=== PATIENT | female | born 1970 | race Caucasian/White ===

== ENCOUNTER 2020-06-09 12:01 | Emergency (ER) | payer OTHER, SELFPAY ==
[2020-06-09 12:19] VITALS: BP 110/76; PULSE 65; RESP 20; TEMP 36.3; O2SAT 100
[2020-06-09] MEDS: TETANUS,DIPHTHERIA,AC PERTUSSIS ADULT (0.5 ML) BOOSTRIX IM (13:02)
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
== END 2020-06-09 13:45 | disposition home or self-care (01) ==
PROVIDERS: Emergency Provider Emergency Medicine; PCP Internal Medicine
DX: S81.811A Laceration without foreign body, right lower leg, initial encounter (principal); Z23 Encounter for immunization; W27.2XXA Contact with scissors, initial encounter
CPT/HCPCS: 12001; 90471; 90715; 99282

== ENCOUNTER 2022-04-18 16:56 | Emergency (ER) | payer BC, OTHER, SELFPAY ==
--- NOTE | 2022-04-18 17:06 | ED.SKABFB ---
HPI - Skin/Abscess/Foreign Bdy General Chief complaint: Skin/Abscess/Foreign Body Stated complaint: Rash On both Hands Time Seen by Provider: 04/18/22 17:05 Source: patient Mode of arrival: ambulatory Limitations: no limitations History of Present Illness HPI narrative: Ms. Massey is a 51-year-old female patient presenting to the clinic today with complaints of rash on bilateral hands. She reports this has been ongoing for approximately 1 month. 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 She thinks that she may be having allergic reaction to jim tea that she has started to drink over the last month. She has seen her PCP on been on a couple rounds of antibiotics. She reports that her hands are inflamed and itching very badly. She is also using triamcinolone cream 0. 1% that has not been helpful Related Data Home Medications Medication Instructions Recorded Confirmed cetirizine 10 mg tablet (Zyrtec) 10 mg PO DAILY 10/28/21 04/18/22 rizatriptan 5 mg tablet 5 mg PO ONCE 10/28/21 04/18/22 topiramate 200 mg tablet (Topamax) 200 mg PO BID 10/28/21 04/18/22 Allergies Allergy/AdvReac Type Severity Reaction Status Date / Time shellfish derived Allergy Unknown Hives Verified 04/18/22 16:58 tree nut Allergy Unknown Hives Verified 04/18/22 16:58 iodine Allergy Unknown Verified 04/18/22 16:58 latex Allergy Rash Verified 04/18/22 16:58 Review of Systems Review of Systems: Pertinent positives per HPI. Patient denies any fever, chills, headache, visual changes, dizziness, cough, runny nose, sore throat, shortness of breath, chest pain, palpitations, nausea, vomiting, diarrhea, constipation, abdominal pain, or any urinary issues. [facility] Surgical History Surgical History H/O right breast biopsy (04/18/17) H/O right breast biopsy (03/22/18) H/O right breast biopsy (06/09/21) H/O right breast biopsy (08/11/21) radial scar abnormal cells seeing oncologist H/O: hysterectomy supracx hysterectomy History of orthopedic surgery right shoulder History of orthopedic surgery left knee Hx of cholecystectomy Family History Family History Other Breast cancer paternal aunt Grandparent H/O ovarian cancer maternal grandmother Mother Hypertension Father Hypertension Social History Social History Smoking status: Former smoker Smoking end date: 05/01/21 Alcohol intake: current Alcohol use details: ocassional Substance use: never Substance use type: does not use Additional living arrangements comments: Additional occupation/education comments: [employer] Gender identity (if verbalized by the patient): Female Sexual Orientation (if Verbalized by the Patient): Straight or Heterosexual Comments At the time of my signature, I reviewed and agree with the nursing past medical, surgical, social, and family history. There is no relevant family history pertinent to the patient complaint. Exam Narrative: General: Well-developed, well nourished, in no apparent distress Head: Normocephalic, atraumatic. Cardio: Regular rate and rhythm, s1 and s2 normal, no murmur appreciated. Resp: Clear to auscultation bilaterally, no rhonchi, rales, wheezing or rubs. Integumentary: [place], warm, and dry, bilateral hand swelling, redness, and itching with patches of dry skin and peeling around her fingers. Course Course Emergency Course: Portions of this record may have been created with voice recognition software. Level of Care: Express Care Visit Vital Signs Vital signs: Vital Signs Temperature 35.8 C L 04/18/22 17:12 Pulse Rate 85 04/18/22 17:12 Respiratory Rate 18 04/18/22 17:12 Blood Pressure 115/77 04/18/22 17:12 Pulse Oximetry 100 04/18/22 17:12 Oxygen Delivery Room Air 04/18/22 17:12 Temperature 35.8 C L
[2022-04-18 17:12] VITALS: BP 115/77; PULSE 85; RESP 18; TEMP 35.8; O2SAT 100
== END 2022-04-18 17:16 | disposition home or self-care (01) ==
PROVIDERS: Emergency Provider Nurse Practitioner Family; PCP Internal Medicine
DX: L20.9 Atopic dermatitis, unspecified (principal); Z87.891 Personal history of nicotine dependence
CPT/HCPCS: 99213; G0463

== ENCOUNTER 2022-08-27 08:00 | Outpatient (RCR) | payer OTHER, SELFPAY ==
--- NOTE | 2022-08-12 15:53 | PTOPEVAL1 ---
Assessment and note entered by Luda Galarza, PT Evaluation Information Assessment Status Evaluation Diagnosis s/p R knee arthroscopy for medial meniscal tear Onset 08-10-22 Subjective Information is walking around the house without the crutches or with 1 crutch; at home have been doing ankle pumps, SLR, heel slides; have been using ice and elevation; Reported Pain Level Pain Score Self Report Additional Pain Score Comments pain today: 4/10; burning pain with flexion at end range; increase pain with getting out of bed and decreased with ice; have oxycodone and tylenol/ibuprofen; Assessment PT Clinical Summary Aylin is s/p R knee arthroscopy due to medial meniscal tear. She has had L knee arthroscopy in the past. 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 With the evaluation, she has decreased strength and ROM of R knee post op; decreased walking pattern and decreased activity level. Skilled PT services are indicated to increase R knee ROM and strength, with progression of HEP and activity, modalities PRN for pain and swelling and education for home exercises. Plan of Care Interventions Electrical Stimulation,Gait Training,Hot Pack/Cold Pack,Manual Therapy,Neuro Re-education,Patient/ Caregiver Education,Therapeutic Activities, Therapeutic Exercise PT Services Indicated Yes Treatment Frequency and 1-2x/wk for 3 weeks, depending upon her work Duration schedule These treatments will address the objective and functional deficits as defined above. The patient will be advanced safely and appropriately in order for the patient to progress towards his/her prior level of function. Additional exercises will be introduced and as well as a comprehensive home exercise program upon discharge, if needed, ?to ensure carryover of functional gains achieved in the clinic. This treatment plan has been reviewed and agreement upon by the patient.
--- NOTE | 2022-08-30 10:58 | PCPTNOTE ---
PHYSICAL THERAPY DISCHARGE 08-30-22 Attending Provider: AMMON CARTAGENA MD Patient:Aylin Massey Date of :1970 Mrs. Massey has received 3 PT sessions, from August 12 to , for the diagnosis of s/p R knee arthroscopy. At the last session: active ROM of knee was 0-140', did not have pain, 2 minute walking test distance was 500', was indep with Home Exercises and single leg standing tolerance of 30 seconds with good stability. The goals were achieved; Therefore, she will be discharged at this time. Thank you for referring Aylin to [facility].
== END 2022-08-31 08:47 | disposition home or self-care (01) ==
LOC: ANHPT 08:00
PROVIDERS: PCP Internal Medicine
DX: S83.241D Other tear of medial meniscus, current injury, right knee, subsequent encounter (principal); M25.561 Pain in right knee
CPT/HCPCS: 97110; 97161; 97530

== ENCOUNTER 2022-10-03 18:07 | Emergency (ER) | payer OTHER, SELFPAY ==
--- NOTE | ~2022-10-03 | XR_ITS ---
EXAMINATION: XR knee RT 3V DATE: 10/03/2022 18:49 INDICATION: Right knee pain and swelling TECHNIQUE: Three views of the right knee were obtained. COMPARISON: None. FINDINGS: Alignment is normal. No fracture or osteochondral lesion. Joint spaces are normal with no e rosions. No joint effusion/synovitis. Soft tissues are unremarkable. IMPRESSION: 1. No acute osseous abnormality. Reviewed, dictated and finalized at location F. [facility] [employer]
[2022-10-03 18:13] VITALS: BP 112/61; PULSE 87; RESP 18; TEMP 36.9; O2SAT 100
[2022-10-03 22:38] VITALS: BP 118/84; PULSE 67; RESP 16; O2SAT 100
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
[2022-10-03 23:20] LABS: Basophils Absolute Auto 0.1 K/mm3 (0.0-0.1); Basophils Percent Auto 0.9 % (0.2-1.2); Eosinophils Absolute Auto 0.2 K/mm3 (0-0.3); Eosinophils Percent Auto 2.8 % (0-4.4); Hematocrit 36.7 % (37.0-47.0); Hemoglobin 11.4 g/dL (12.0-15.0); Immature Granulocyte Absolute 0.03 K/mm3 (0.00-0.031); Immature Granulocyte Percent A 0.4 % (0-0.5); Lymphocytes Absolute Auto 3.62 K/mm3 (0.9-3.2); Lymphocytes Percent Auto 46.1 % (18.3-44.2); Mean Corpuscular HGB Conc 31.1 g/dl (32-36); Mean Corpuscular Hemoglobin 29.4 pg (26-34); Mean Corpuscular Volume 94.6 fl (80-100); Mean Platelet Volume 9.8 fl (7.4-10.4); Monocytes Absolute Auto 0.5 K/mm3 (0.1-0.6); Monocytes Percent Auto 6.1 % (2.6-8.5); Neutrophils Absolute Auto 3.4 K/mm3 (1.3-6.7); Neutrophils Percent Auto 43.7 % (45.5-73.1); Platelet Count Result 232 k/mm3 (150-375); Red Blood Count 3.88 M/mm3 (4.2-5.4); Red Cell Distribution Width 12.9 % (11.5-14.5); White Blood Count 7.9 K/mm3 (4.5-10.0)
[2022-10-03 23:32] LABS: Alanine Aminotransferase 20 U/L (6-35); Albumin Level 3.9 g/dL (3.5-5.1); Alkaline Phosphatase 62 U/L (38-126); Anion Gap 4 mmol/L (8-16); Aspartate Amino Transferase 22 U/L (14-36); Bilirubin,Total 0.5 mg/dL (0.2-1.3); Blood Urea Nitrogen 15 mg/dL (7-17); Calcium 8.6 mg/dL (8.4-10.2); Carbon Dioxide 25 mmol/L (22-30); Chloride 109 mmol/L (98-107); Estimated Glomerular Filt Rate > 60; Glucose 96 mg/dL (65-110); Potassium 4.2 mmol/L (3.4-5.0); Prothrombin Time 12.7 Seconds (11.1-14.7); Sodium 138 mmol/L (137-145)
[2022-10-03 23:33] LABS: Partial Thromboplastin Time 25.5 SECONDS (22.3-36.8)
[2022-10-04 00:11] LABS: D Dimer 0.33 ug/mL (<0.48)
[2022-10-04 00:40] VITALS: BP 108/63; PULSE 81; RESP 18; O2SAT 100
== END 2022-10-04 00:40 | disposition home or self-care (01) ==
PROVIDERS: Emergency Provider Emergency Medicine; PCP Internal Medicine
DX: M79.661 Pain in right lower leg (principal); Z87.891 Personal history of nicotine dependence
CPT/HCPCS: 36415; 73562; 80053; 85025; 85380; 85610; 85730; 99283

== ENCOUNTER 2022-10-04 07:49 | Outpatient (CLI) | payer OTHER, SELFPAY ==
--- NOTE | ~2022-10-04 | US_ITS ---
EXAMINATION: US venous doppler LE RT DATE: 10/04/2022 08:19 INDICATION: Right lower limb pain. TECHNIQUE: Grayscale ultrasound images without and with compression and Doppler ultrasound images of the right lower extremity veins were obtained. COMPARISON: None. FINDINGS: The visualized portions of right common femoral vein, profunda (deep) femoral vein, femoral vein, pop liteal vein, peroneal veins, posterior tibial veins, and greater saphenous vein outflow are patent. IMPRESSION: 1. No deep venous thrombosis. Reviewed, dictated and finalized at location D. [facility]
== END 2022-10-04 07:50 | disposition home or self-care (01) ==
PROVIDERS: PCP Internal Medicine; Visit Provider Internal Medicine
DX: M79.661 Pain in right lower leg (principal)
CPT/HCPCS: 93971

== ENCOUNTER 2023-04-10 15:00 | Emergency (ER) | payer OTHER, SELFPAY ==
[2023-04-10 15:49] VITALS: BP 105/65; PULSE 79; RESP 16; TEMP 36.2; O2SAT 100
--- NOTE | 2023-04-10 16:45 | ED.FEMALEGU ---
HPI - Female Genitourinary General Chief complaint: Urogenital-Female Stated complaint: Female Urogenital Time Seen by Provider: 04/10/23 16:41 Source: patient and RN notes reviewed Mode of arrival: ambulatory Limitations: no limitations History of Present Illness HPI Narrative: Patient presents today with a one-week history of lower abdominal pressure and dysuria. She had some blood on her toilet paper when she wiped this morning as well. Patient was started on a course of Bactrim for presumed UTI based on a telephone visit with her PCP last week. States symptoms improved until yesterday, then worsened again. She was taking azo earlier in the week for a couple of days, but then stopped this. Patient has had a partial hysterectomy. Patient is also complaining of some external genital irritation and believe she may have a yeast infection due to the Bactrim. Related Data Home Medications Medication Instructions Recorded Confirmed cetirizine 10 mg tablet (Zyrtec) 10 mg PO DAILY 10/28/21 04/10/23 rizatriptan 5 mg tablet 5 mg PO ONCE 10/28/21 04/10/23 topiramate 200 mg tablet (Topamax) 200 mg PO BID 10/28/21 04/10/23 sulfamethoxazole 800 1 tablet PO BID 04/10/23 04/10/23 mg-trimethoprim 160 mg tablet Allergies Allergy/AdvReac Type Severity Reaction Status Date / Time egg Allergy Intermediate Rash Verified 04/10/23 16:24 latex Allergy Intermediate Rash Verified 04/10/23 16:24 Review of Systems Review of Systems: CONSTITUTIONAL: Denies body aches, fever, chills, or sweats. EYES: Denies visual changes, redness, or discharge. ENT: Denies rhinorrhea, congestion, sore throat, or otalgia. CARDIOVASCULAR: Denies chest pain, palpitations, or edema. RESPIRATORY: Denies cough or dyspnea. GASTROINTESTINAL: Denies abdominal pain, nausea, vomiting, or diarrhea. GENITOURINARY: + dysuria, hematuria, lower abdominal pressure SKIN: Denies rash, itching, or wounds. MUSCULOSKELETAL: Denies back pain, joint pain, or myalgia. NEUROLOGIC: Denies headache, numbness, tingling, or weakness. PSYCH: Denies depression or anxiety. [facility] Surgical History Surgical History H/O breast biopsy 2022 @ [facility] H/O right breast biopsy (04/18/17) H/O right breast biopsy (03/22/18) H/O right breast biopsy (06/09/21) H/O right breast biopsy (08/11/21) radial scar abnormal cells seeing oncologist H/O: hysterectomy supracx hysterectomy History of orthopedic surgery right shoulder History of orthopedic surgery left knee Hx of cholecystectomy Family History Family History Other Breast cancer paternal aunt Grandparent H/O ovarian cancer maternal grandmother Mother Hypertension Father Hypertension Social History Social History Smoking status: Former smoker Smoking end date: 05/01/21 Alcohol intake: current Alcohol use details: ocassional Substance use: never Substance use type: does not use Lack of Transportation: No Lack of Food: Never True Current Housing: I Have Housing Concerned About Future Housing: No Difficulty Paying Gas/Electric Bills: No Difficulty Paying for Meds: No Currently Unemployed: No Education: High School Diploma/GED Difficulty w/ Childcare or Family Care: No Living arrangements: other Additional living arrangements comments: Occupation/Education: occupation 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 Please see nursing chart for further information. There is no relevant family hist
== END 2023-04-10 16:55 | disposition home or self-care (01) ==
PROVIDERS: Emergency Provider Nurse Practitioner; PCP Internal Medicine
DX: N39.0 Urinary tract infection, site not specified (principal); Z87.891 Personal history of nicotine dependence
CPT/HCPCS: 81003; 87086; 99213; G0463

== ENCOUNTER 2023-04-13 16:06 | Emergency (ER) | payer OTHER, SELFPAY ==
--- NOTE | ~2023-04-13 | CT_ITS ---
EXAMINATION: CT abdomen pelvis w con INDICATION: Suprapubic and right lower quadrant pain TECHNIQUE: Computed tomographic images of the abdomen and pelvis were obtained after the administrati on of 100 cc of Omnipaque 350 intravenous contrast. The dose-length product (DLP) was 404.92 mGy-cm. Automated exposure control and iterative reconstruction technique were employed. COMPARISON: None available FINDINGS: The lung bases are clear. The heart size is normal. The gallbladder is surgically absent. T here is mild enlargement of the common bile duct and central intrahepatic ducts which is likely due t o post cholecystectomy state. There is a 7 mm cyst of the liver. The spleen, pancreas, and adrenal gl ands are normal. There is a 7 mm cyst of the left kidney. The right kidney is unremarkable. No pathol ogically enlarged abdominal or pelvic lymph nodes are identified. No free intraperitoneal gas or evid ence of bowel obstruction. A moderate volume of colonic stool is present. The appendix is not definit payton identified however no right lower quadrant inflammatory change is seen. There is mild lumbar spon dylosis. IMPRESSION: 1. Constipation. Reviewed, dictated and finalized at location F. IMPRESSION: 1. Constipation.
[2023-04-13 16:08] VITALS: BP 119/62; PULSE 66; RESP 16; TEMP 36.7; O2SAT 100
[2023-04-13 16:23] LABS: Basophils Absolute Auto 0.1 K/mm3 (0.0-0.1); Basophils Percent Auto 0.9 % (0.2-1.2); Eosinophils Absolute Auto 0.1 K/mm3 (0-0.3); Eosinophils Percent Auto 1.2 % (0-4.4); Hematocrit 41.8 % (37.0-47.0); Hemoglobin 13.1 g/dL (12.0-15.0); Immature Granulocyte Absolute 0.01 K/mm3 (0.00-0.031); Immature Granulocyte Percent A 0.1 % (0-0.5); Lymphocytes Absolute Auto 2.99 K/mm3 (0.9-3.2); Mean Corpuscular HGB Conc 31.3 g/dl (32-36); Mean Corpuscular Volume 92.5 fl (80-100); Mean Platelet Volume 9.4 fl (7.4-10.4); Monocytes Absolute Auto 0.3 K/mm3 (0.1-0.6); Monocytes Percent Auto 4.4 % (2.6-8.5); Neutrophils Percent Auto 53.4 % (45.5-73.1); Platelet Count Result 285 k/mm3 (150-375); Red Blood Count 4.52 M/mm3 (4.2-5.4); Red Cell Distribution Width 12.6 % (11.5-14.5); White Blood Count 7.5 K/mm3 (4.5-10.0)
[2023-04-13 16:34] LABS: Alanine Aminotransferase 26 U/L (6-35); Albumin Level 4.8 g/dL (3.5-5.1); Alkaline Phosphatase 71 U/L (38-126); Anion Gap 9 mmol/L (8-16); Aspartate Amino Transferase 30 U/L (14-36); Bilirubin,Total 0.7 mg/dL (0.2-1.3); Blood Urea Nitrogen 15 mg/dL (7-17); Carbon Dioxide 22 mmol/L (22-30); Chloride 107 mmol/L (98-107); Estimated CRCL calculation 75 ml/min; Estimated Glomerular Filt Rate > 60; Glucose 96 mg/dL (65-110); Lipase 126 U/L (23-300); Sodium 138 mmol/L (137-145)
[2023-04-13 16:51] LABS: Appearance Urine Clear (Clear); Bilirubin Urine Negative (Negative); Blood Urine Negative (Negative); Color Urine Yellow (Yellow); Glucose Urine UA Negative (Negative); Ketones Urine Negative (Negative); Leukocyte Esterase Ur Negative LEU/UL (Negative); Nitrate Urine Negative (Negative); Protein Urine Negative (Negative); Specific Grav Ur 1.008 (1.001-1.035); Urobilinogen Urine 0.2 mg/dL (<2.0)
[2023-04-13 16:54] LABS: Add Urine Microscopic? NO
--- NOTE | 2023-04-13 17:44 | ED.ABDPAIN ---
HPI - Abdominal Pain General Chief Complaint: Abdominal Pain Stated Complaint: abdominal pain Time Seen by Provider: 04/13/23 17:01 History of Present Illness HPI narrative: 52-year-old female with history of migraines reports for evaluation for abdominal pain x1.5 weeks. Patient states a week and half ago, she developed dysuria, suprapubic abdominal pain and pressure. States she called her PCP who prescribed her Bactrim for a UTI. States she took the Bactrim for 6 days and I missed any doses but continue to have symptoms.she then developed hematuria and therefore went to urgent care 3 days ago who prescribed her Keflex for UTI. She has been taking Keflex for the past 3 days and has not missed any doses, however her symptoms still persist. She does state that her hematuria resolved yesterday, but she is still having abdominal pain and pressure. States the pain is in her periumbilical region and suprapubic region as well as RLQ and LLQ. She saw her primary care provider today 1300 who advised her to come to the ED for a CT scan. States her urinalysis looked clean per PCP today. She reports having intermittent episodes of diaphoresis, denies known fever. She denies nausea, vomiting, diarrhea, melena or hematochezia, vaginal bleeding or concern for STDs, chest pain or shortness of breath. She states she was having L flank pain 1 weeks ago but that has since resolved. Denies hx of kidney stones. Her last bowel movement was today and normal. Prior abdominal surgeries include a partial hysterectomy, 2 C-sections and a cholecystectomy. Related Data Home Medications Medication Instructions Recorded Confirmed cetirizine 10 mg tablet (Zyrtec) 10 mg PO DAILY 10/28/21 04/10/23 rizatriptan 5 mg tablet 5 mg PO ONCE 10/28/21 04/10/23 topiramate 200 mg tablet (Topamax) 200 mg PO BID 10/28/21 04/10/23 sulfamethoxazole 800 1 tablet PO BID 04/10/23 04/10/23 mg-trimethoprim 160 mg tablet Allergies Allergy/AdvReac Type Severity Reaction Status Date / Time egg Allergy Intermediate Rash Verified 04/10/23 16:24 latex Allergy Intermediate Rash Verified 04/10/23 16:24 Review of Systems Review of Systems: CONSTITUTIONAL: Denies fever, chills EYES: Denies visual changes, redness, or discharge. ENT: Denies rhinorrhea, congestion, sore throat, or otalgia. CARDIOVASCULAR: Denies chest pain, palpitations, or edema. RESPIRATORY: Denies cough or dyspnea. GASTROINTESTINAL: See HPI GENITOURINARY: See HPI SKIN: Denies rash or itching. MUSCULOSKELETAL: Denies back pain, joint pain, or myalgia. NEUROLOGIC: Denies headache, numbness, dizziness, or weakness. PSYCHIATRIC: Denies anxiety or depression. [facility] Surgical History Surgical History H/O breast biopsy 2022 @ [facility] H/O right breast biopsy (04/18/17) H/O right breast biopsy (03/22/18) H/O right breast biopsy (06/09/21) H/O right breast biopsy (08/11/21) radial scar abnormal cells seeing oncologist H/O: hysterectomy supracx hysterectomy History of orthopedic surgery right shoulder History of orthopedic surgery left knee Hx of cholecystectomy Family History Family History Other Breast cancer paternal aunt Grandparent H/O ovarian cancer maternal grandmother Mother Hypertension Father Hypertension Social History Social History Smoking status: Former smoker Smoking end date: 05/01/21 Alcohol intake: current Alcohol use details: ocassional Substance use: never Substance use type: does not use Lack of Transportation: No Lack of Food: Never True Current Housing: I Have Housing Concerned About Future Housing: No Difficulty Paying Gas/Electric Bills: No Difficulty Paying for Meds: No Currently Unemployed: No Education: High School Diploma/GED Difficulty w/ Childcare o
--- NOTE | 2023-04-13 18:05 | PC.NURSE ---
multiple attempts at IV access without success. Another RN in room to attempt IV access.
[2023-04-13] MEDS: MORPHINE SULFATE (*CRX) 4 MG/ML INJ IV PUSH (18:11)
[2023-04-13] MEDS: SODIUM CHLORIDE 0.9% IV 1,000 ML 999 ML IV CONT (18:11)
[2023-04-13] MEDS: ONDANSETRON INJ 4 MG/2 ML VIAL IV PUSH ×2 (18:11→20:02)
[2023-04-13] MEDS: HYDROmorphone HCL INJ (*CRX) 1 MG/ML SYR IV PUSH (18:55)
[2023-04-13 19:29] VITALS: PULSE 61; RESP 15; O2SAT 100
[2023-04-13] MEDS: PEG (High)/E-LYTE SOLN 4,000 ML BTL 4000 ML PO (20:34)
[2023-04-13 22:56] VITALS: BP 126/66; PULSE 68; RESP 20; O2SAT 100
== END 2023-04-13 22:57 | disposition home or self-care (01) ==
PROVIDERS: Emergency Medicine; Emergency Provider Physician Assistant; PCP Internal Medicine
DX: K59.00 Constipation, unspecified (principal); Z90.710 Acquired absence of both cervix and uterus; Z90.49 Acquired absence of other specified parts of digestive tract; Z87.891 Personal history of nicotine dependence
CPT/HCPCS: 36415; 74177; 80053; 81003; 81025; 83690; 85025; 96361; 96374; 96375; 96376; 99284; A9270; J1170; J2270; J2405; J7030; Q9967

== ENCOUNTER 2023-10-25 08:15 | Outpatient (RCR) | payer OTHER, SELFPAY ==
[2023-10-19 09:25] VITALS: BP_SYST 140
--- NOTE | 2023-10-19 10:17 | OPREHPOC ---
Outpatient Therapy Plan of Care This is a Multidisciplinary Plan of Care that may contain components documented by all disciplines (PT, OT, and ST.) PT Problem 1 PT Problem #1 Knowledge Deficit PT Goal 1 Goal * indep with HEP PT Problem 2 PT Problem #2 Pain PT Goal 1 Goal 1* decrease pain rating at worst to 4/10 2* pt report with sleeping, awaken due to pain 1x/ night 3* self assessment functional score with Quick DASH rating of 30% limitation in activity level PT Problem 3 PT Problem #3 Impaired Strength PT Goal 1 Goal increase strength of R shoulder/dominant arm, to improve ability to do home, self care and work tasks: standing x 5 reps: 1* flexion to 140; 2* abduction to 130' 3* IR- reach behind back, fingers to upper scapula
--- NOTE | 2023-10-19 10:18 | PTOPEVAL1 ---
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 Reported Pain Level Pain Score Self Report Additional Pain Score Comments pain range in the past week 2-03/10; increase pain: abduction and extension shoulder motion; sleeping- awaken 3-4 x/night- end up going to the couch decrease pain: taking anti inflammatory prescription; ice; Assessment PT Clinical Summary Aylin has the diagnosis of R shoulder capsulitis. Her history includes L shoulder pain with arthroscopy. 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 Self assessment Quick DASH rating of 48% limitation. She is able to do all of her work and home tasks, with increased pain. Sleep is disrupted due to pain. She has been doing some of the previous exercises from previous PT for her L shoulder. With the evaluation: she has decreased active ROM of shoulder flexion, abduction and IR motions; most pain with combined motion of shoulder abduction and extension; spasms over mid deltoid and biceps with tenderness. Skilled PT services are indicated for modalities to decrease pain and spasms, therapeutic exercises to increase R shoulder ROM and strength with education for HEP, posture correction, body mechanics with work positions. Plan of Care Interventions Elect
--- NOTE | 2023-11-04 15:42 | PTOPDC ---
Assessment and note entered by Luda Galarza, PT Discharge Information Assessment Status Discharge - Pt Not Present Diagnosis R shoulder capsulitis Onset Jul 2023 Assessment PT Clinical Summary Aylin has received 3 PT appointments from October 18 to . On November 02, she called and canceled all of her therapy appointments. The goals were not addressed. Discharge PT per pt request. Plan of Care PT Services Indicated No
== END 2023-11-07 09:41 | disposition home or self-care (01) ==
LOC: ANHPT 08:15
PROVIDERS: PCP Internal Medicine
DX: M25.511 Pain in right shoulder (principal)
CPT/HCPCS: 97014; 97110; 97161; 97530; G0283

== ENCOUNTER 2024-02-09 07:37 | Outpatient (CLI) | payer OTHER, SELFPAY ==
[2024-02-09 07:58] LABS: Basophils Absolute Auto 0.1 K/mm3 (0.0-0.1); Basophils Percent Auto 1.3 % (0.2-1.2); Eosinophils Absolute Auto 0.1 K/mm3 (0-0.3); Eosinophils Percent Auto 1.7 % (0-4.4); Hemoglobin 14.4 g/dL (12.0-15.0); Immature Granulocyte Absolute 0.02 K/mm3 (0.00-0.031); Immature Granulocyte Percent A 0.4 % (0-0.5); Lymphocytes Percent Auto 42.5 % (18.3-44.2); Mean Corpuscular HGB Conc 31.3 g/dl (32-36); Mean Corpuscular Hemoglobin 29.7 pg (26-34); Mean Corpuscular Volume 94.8 fl (80-100); Mean Platelet Volume 9.9 fl (7.4-10.4); Monocytes Absolute Auto 0.3 K/mm3 (0.1-0.6); Monocytes Percent Auto 5.3 % (2.6-8.5); Neutrophils Absolute Auto 2.3 K/mm3 (1.3-6.7); Neutrophils Percent Auto 48.8 % (45.5-73.1); Platelet Count Result 220 k/mm3 (150-375); Red Blood Count 4.85 M/mm3 (4.2-5.4); Red Cell Distribution Width 12.9 % (11.5-14.5); White Blood Count 4.7 K/mm3 (4.5-10.0)
[2024-02-09 08:48] LABS: Alanine Aminotransferase 20 U/L (6-35); Alkaline Phosphatase 61 U/L (38-126); Anion Gap 12 mmol/L (4-12); Aspartate Amino Transferase 28 U/L (14-36); Bilirubin,Total 0.7 mg/dL (0.2-1.3); Blood Urea Nitrogen 14 mg/dL (7-17); Calcium 9.3 mg/dL (8.4-10.2); Carbon Dioxide 19 mmol/L (22-30); Chloride 112 mmol/L (98-107); Estimated Glomerular Filt Rate > 60; Glucose 92 mg/dL (65-110); Sodium 143 mmol/L (137-145)
[2024-02-09 09:03] LABS: Free T4 Free Thyroxine 0.96 ng/mL (0.78-2.19)
[2024-02-09 23:49] LABS: Hemoglobin A1C 5.5 % (<5.7)
[2024-02-10 06:29] LABS: Triiodothyronine T3 Free 3.6 pg/mL (2.3-4.2)
[2024-02-10 07:53] LABS: FSH 127.9 mIU/mL
[2024-02-16 00:24] LABS: Estradiol, Ultrasensitive 95 pg/mL
== END 2024-02-09 07:38 | disposition home or self-care (01) ==
LOC: ANHLAB 07:38
PROVIDERS: PCP Internal Medicine; Visit Provider Obstetrics & Gynecology
DX: R53.83 Other fatigue (principal)
CPT/HCPCS: 36415; 80053; 82670; 83001; 83036; 84439; 84443; 84481; 85025